=== PATIENT | female | born 1990 | race African-American/Black ===

== ENCOUNTER 2024-01-01 11:42 | Emergency (ER) | payer OTHER, SELFPAY ==
--- NOTE | 2024-01-01 | ECG_ITS ---
Test Reason : CHEST PAIN Blood Pressure : / mmHG Vent. Rate : 064 BPM Atrial Rate : 064 BPM P-R Int : 134 ms QRS Dur : 082 ms QT Int : 390 ms P-R-T Axes : 038 055 044 degrees QTc Int : 402 ms Normal sinus rhythm with sinus arrhythmia Normal ECG No previous ECGs available Referred By: Generic ED Physician Electronically Signed By:GEORGIA MONREAL MD
--- NOTE | ~2024-01-01 | XR_ITS ---
EXAMINATION: XR CHEST 2 VIEW CLINICAL INFORMATION: Cough COMPARISON: None TECHNIQUE: PA and lateral views of the chest obtained. FINDINGS: The lungs are clear. There are no pleural effusions. The cardiomediastinal silhouette is normal. XR/XR chest 2V IMPRESSION: No acute cardiopulmonary disease.
[2024-01-01 11:48] VITALS: BP 102/68; PULSE 78; RESP 18; TEMP 36.2; O2SAT 100; BMI 23.5
[2024-01-01 12:00] VITALS: RESP 18
--- NOTE | 2024-01-01 12:14 | ED_ITS ---
HPI - General Adult General Chief complaint: General Medical Stated complaint: Allergic reaction ?, congestion Time Seen by Provider: 01/01/24 12:14 Source: patient Mode of arrival: ambulatory Limitations: no limitations History of Present Illness ED Provider: brinda AVILA narrative: Patient is a 33-year-old female with history of ashtma presenting to the emergency department with complaint of nasal congestion, sinus pain, and productive cough for the past week as well as rash to hands and feet which developed 3 days ago. Denies any fevers since onset of symptoms. Does not currently have any inhalers at home. Reports chest pain only with episodes of coughing. States rash to hands and feet began 3 days ago after using a new soap, Gain with bleach alternative. Denies pain, reports mild pruritis. Has not taken any OTC medications for her symptoms. Denies any recent unprotected intercourse. MD complaint: cough, rash Onset (ago): day(s) Treatments prior to arrival: none Related Data Previous Rx's ?Medication ?Instructions ?Recorded albuterol sulfate 90 mcg/actuation 2 puff inhalation Q4-6H PRN 01/01/24 aerosol inhaler shortness of breath or wheezing #6.7 grams azithromycin 250 mg tablet See Rx Instructions PO .COMPLEX #6 01/01/24 tabs prednisone 20 mg tablet 40 mg (2 x 20 mg) PO DAILY #10 tabs 01/01/24 Allergies Allergy/AdvReac Type Severity Reaction Status Date / Time latex Allergy Hives Verified 01/01/24 11:52 Review of Systems Review of Systems: As per HPI. Yes all other systems are reviewed and are negative Constitutional: Constitutional: Reports as per HPI PMF Social History Social History Smoked in Last 30 Days: Yes Use of substances other than those prescribed or required for medical reasons: Yes Substance Use Type: Marijuana Substance Use Frequency: Daily Last Used Substance: Just Prior to Admission Any prior treatment program specific to substance use: No Advance Directives: No Advance Directives Information Provided: Yes Do you have a plan to hurt others: No Plan Physical Exam ED Vital Signs: Vital Signs - 24 hr 01/01/24 11:48 01/01/24 12:00 01/01/24 14:11 Temperature 97.1 F 97.8 F Pulse Rate 78 65 Respiratory Rate 18 18 19 Blood Pressure 102/68 103/63 Pulse Oximetry 100 100 Oxygen Delivery Method Room Air Room Air BMI result Body Mass Index 23.5 Vital signs have been reviewed and appear to be correct. Blood pressure normal. Heart rate normal. Respiratory rate normal. Temperature normal. Oxygen saturation normal. Const General: cooperative, healthy appearing and no acute distress Orientation/consciousness: oriented to person, oriented to place, oriented to time and patient oriented x3 Limitations: no limitations HENMT Head: Yes normocephalic and Yes atraumatic Ears: external ears normal General nose exam: Normal external nose present Face and sinus: Yes face symmetric Mouth: oropharynx normal and moist mucous membranes Throat: Yes uvula midline Eyes Pupils: Equal, round and reactive pupils present Neck Neck: Yes normal visual inspection and Yes supple Resp Effort & Inspection: normal respiratory effort, able to speak in complete sentences, no retractions and no use of accessory muscles Auscultation: clear to auscultation bilaterally, no rales, no rhonchi and no wheezes Cardio Rate: regular rate Rhythm: regular rhythm Heart sounds: S1 normal heart sound present and S2 normal heart sound present GI Palpation (GI): Soft to palpation and nontender Auscultation: normoactive bowel sounds General: Yes no CVA tenderness Back/Spine/Pelvis Back: no CVA tenderness Skin General skin exam: elasticity normal and turgor normal Rashes: rashes noted papules bilateral palmar size (1-2mm), color flesh-colored and distribution (bilateral palmar and plantar) Neuro General: oriented to person, oriented to place, oriented to time, patient oriented x3, moves all extremities, no focal motor deficits and CN's II-XI intact bilaterally Cranial nerves: Yes Equal, round and reactive pupils present Cognition (Neuro): normal cognition Extrem General: Yes full ROM, Yes no pedal edema and Yes no calf tenderness Psych Mental Status: mental status grossly normal Affect: normal affect Thought process: Normal thought process present Medical Decision Making Medical Decision Making MDM Narrative: Patient is a 33-year-old female with history of ashtma presenting to the emergency department with complaint of nasal congestion, sinus pain, and productive cough for the past week as well as rash to hands and feet which developed 3 days ago. On exam patient is awake, A+Ox3, VS WNL, afebrile, normal neurological exam without focal deficits, physical exam findings as above. Given reported symptoms and physical exam findings, initial differential includes viral illness, bronchitis, pneumonia, rhinosinusitis, contact dermatitis, dyshydrotic eczema, secondary syphillis. X-ray notable for no evidence of pneumonia. My interpretation is in agreement with the radiologist's interpretation. Viral serology negative. RPR positive, patient updated on results. Treated with PCN G, mandatory reporting completed. Patient declining HIV testing at this time. Discussed with patient that she needs to notify all sexual partners within the last 90 days of results and that they also require treatment. Instructed her to abstain from intercourse for at least 7 days. Will treat patient for bronchitis with azithromycin, prednisone and albuterol inhaler. Return precautions discussed. Instructed patient to follow up with PCP. Patient verbalized understanding of and agreement with plan. Differential Diagnosis Differential Diagnoses: The differential diagnosis associated with the presentation includes As per [facility] Admission/Observation Consideration of admission/observation: Escalation of care including admission/observation considered Patient would have been admitted to the hospital had their work up had any findings where hospital admission was appropriate and their clinical presentation warranted hospital admission. Lab Data [facility] Lab Attestation statement: I reviewed the patient's lab results. As per [facility] Labs: Lab Results 01/01/24 Range/Units 13:42 T.pallidum Ab (EIA) Reactive A (Nonreactive) Influenza Type A (PCR) NEGATIVE (Negative) Influenza Type B (PCR) NEGATIVE (Negative) RSV RNA Qual (PCR) NEGATIVE (Negative) SARS-CoV-2 RNA (RT-PCR) NEGATIVE (Negative) Independent Interpretation I performed an independent interpretation of an: Plain X-Ray Interpretation: No evidence of pneumonia. Radiology Impression Discussion of test interpretation with radiology: I have reviewed the [facility] ologist's reading. Radiologist Impression: XR/XR chest 2V IMPRESSION: No acute cardiopulmonary disease. External Record Review External record reviewed: Inpatient record and Office record Prescription Management I considered prescription management with: Antibiotic and Other Discharge Plan Discharge Clinical Impression: Bronchitis, Secondary syphilis Patient Disposition: Home, Self-Care Instructions: Sexually Transmitted Diseases (ED), Syphilis (ED), Acute Bronchitis (ED) Additional Instructions: You were evaluated in the emergency department today for a cough and rash. Your x-ray did not show evidence of pneumonia. You are being treated for bronchitis with an antibiotic, a short course of steroids, and inhaler. Please take these medications as prescribed. You also tested positive for syphilis today and were treated with an antibiotic injection in the emergency department. It is important that you do not have sexual intercourse for at least 7 days following this treatment. It is also important that you notify any sexual partners that you have had within the last 90 days because they also need treatment. In the future you should use barrier protection (condom) during intercourse. You should follow up with your primary care provider. Return to the emergency department with any new or worsening symptoms. Prescriptions: New azithromycin 250 mg tablet See Rx Instructions .ROUTE .COMPLEX Qty: 6 0RF Rx Instructions: For 250 mg dose pack: take 500 mg today (day 1), then 250 mg for 4 days (days 2-5) prednisone 20 mg tablet 40 mg PO DAILY Qty: 10 0RF albuterol sulfate 90 mcg/actuation HFA aerosol inhaler 2 puff inhalation Q4-6H PRN (Reason: shortness of breath or wheezing) Qty: 6.7 0RF Print Language: Nepali
[2024-01-01 14:11] VITALS: BP 103/63; PULSE 65; RESP 19; TEMP 36.6; O2SAT 100
[2024-01-01 14:28] LABS: Influenza A PCR NEGATIVE (Negative); Influenza B PCR NEGATIVE (Negative); Resp Syncy Virus RNA Qual PCR NEGATIVE (Negative); SARS COV2 PCR INHOUSE NEGATIVE (Negative)
[2024-01-01 14:37] LABS: Syphilis Screen Reactive (Nonreactive)
[2024-01-01 15:50] VITALS: BP 99/55; PULSE 64; RESP 18; TEMP 36.8; O2SAT 99
[2024-01-01] MEDS: Penicillin G Benzathine 2,400,000 UNIT/4 ML SYRINGE 2400000 UNIT IM (16:47)
[2024-01-01 16:48] VITALS: BP 120/80; PULSE 80; RESP 18; TEMP 36.8; O2SAT 98
[2024-01-06 15:18] LABS: RPR Quantitative Non-Reactive (Nonreactive); T.Pallidum Particle Agg Test Reactive (Nonreactive)
== END 2024-01-01 16:49 | disposition home or self-care (01) ==
PROVIDERS: Registered Nurse Emergency; Emergency Provider Emergency Medicine
DX: J40 Bronchitis, not specified as acute or chronic (principal); A51.49 Other secondary syphilitic conditions; R07.89 Other chest pain; I49.8 Other specified cardiac arrhythmias; Z03.818 Encounter for observation for suspected exposure to other biological agents ruled out; Z79.899 Other long term (current) drug therapy
CPT/HCPCS: 0241U; 36415; 71046; 86592; 86780; 93005; 99283; 99284; J0561

== ENCOUNTER → 2024-01-01 11:56 | Outpatient (BNV) | payer OTHER, SELFPAY | PROVIDERS: Emergency Provider Emergency Medicine; Visit Provider Internal Medicine Cardiovascular Disease | DX: R07.9 Chest pain, unspecified (principal) | CPT/HCPCS: 93010 ==

== ENCOUNTER 2024-01-12 07:42 | Emergency (ER) | payer OTHER, SELFPAY ==
[2024-01-12 07:53] VITALS: BP 127/71; PULSE 83; RESP 16; TEMP 37; O2SAT 100; BMI 24.0
[2024-01-12 10:13] VITALS: BP 110/68; PULSE 62; RESP 16; O2SAT 100
--- NOTE | 2024-01-12 10:30 | ED.EXTPRO ---
HPI - Extremity Problem General Chief complaint: Extremity Problem Stated complaint: swollen hands Time Seen by Provider: 01/12/24 10:20 Source: patient Mode of arrival: ambulatory Limitations: no limitations History of Present Illness ED Provider: Dr. Madrigal HPI Narrative: Patient with pustulse to hands for the past 10 days. Very itchy at night. She was on prednisone and abx with no improvement. patient with diffuse pustules Onset (ago): week(s) Pain Consistency: constant Related Data Previous Rx's ?Medication ?Instructions ?Recorded albuterol sulfate 90 mcg/actuation 2 puff inhalation Q4-6H PRN 01/01/24 aerosol inhaler shortness of breath or wheezing #6.7 grams azithromycin 250 mg tablet See Rx Instructions PO .COMPLEX #6 01/01/24 tabs prednisone 20 mg tablet 40 mg (2 x 20 mg) PO DAILY #10 tabs 01/01/24 permethrin 5 % topical cream 1 appl topical Q14D 2 doses #60 01/12/24 (Elimite) grams Allergies Allergy/AdvReac Type Severity Reaction Status Date / Time latex Allergy Hives Verified 01/12/24 07:53 Review of Systems Review of Systems: Yes all other systems are reviewed and are negative Neurologic: Denies Sensory deficit (Neuro) [facility] Social History Social History Substance Use Type: Marijuana Advance Directives: No Advance Directives Information Provided: No Physical Exam Vital Signs: Vital Signs: Last Vital Signs Temp 98.6 F 01/12/24 07:53 Pulse 62 01/12/24 10:13 Resp 16 01/12/24 10:13 BP 110/68 01/12/24 10:13 Pulse Ox 100 01/12/24 10:13 O2 Del Method Room Air 01/12/24 10:13 BMI result Body Mass Index 24.0 Const: General: healthy appearing Nutritional Appearance: average body habitus Orientation/consciousness: oriented to person and patient oriented x3 Limitations: no limitations HEENT: Head: Yes normal to inspection Ears: external ears normal General nose exam: Normal external nose present Mouth: Normal oral and palatal mucosa present and oropharynx normal Throat: Yes posterior oropharynx normal Eyes: General: appearance normal, both eyes and all related structures Neck: Other: supple Neck: Yes normal visual inspection Chest: Chest palpation & inspection: normal inspection of the chest Resp: Auscultation: clear to auscultation bilaterally Cardio: Jugular venous distension: no JVD Rate: regular rate Rhythm: regular rhythm Heart sounds: S1 normal heart sound present and S2 normal heart sound present GI: Inspection: Yes normal to inspection Palpation (GI): Soft to palpation, nontender and No hepatosplenomegaly present Auscultation: normal bowel sounds : General: Yes no CVA tenderness Back/Spine/Pelvis: Back: no CVA tenderness Skin: General skin exam: no rashes or lesions noted Neuro: General: oriented to person and patient oriented x3 Cranial nerves: Yes CN's II-XII intact bilaterally Motor exam (neuro): 5/5 motor strength present throughout Sensory Exam: No Sensory deficit (Neuro) Extrem: Other: both hands with pustules between the fingers Psych: Appearance: grossly normal Course Reevaluation(s) Reevaluation #1: will treat patient for scabies Time: 10:37 Medical Decision Making Differential Diagnosis Differential Diagnoses: The differential diagnosis associated with the presentation includes (scabies, warts, cellulitis) External Record Review External record reviewed: Outpatient record Prescription Management I considered prescription management with: Antibiotic (hands do not appear infected with cellulitis) Social Determinants Patient?s care significantly limited by Social Determinants of Health including: Low income Discharge Plan Discharge Clinical Impression: Scabies Patient Disposition: Home, Self-Care Instructions: Scabies (ED) Prescriptions: New permethrin [Elimite] 5 % cream 1 appl topical Q14D Qty: 60 0RF Rx Instructions: apply second treatment 14 days after first treatment if live lice remain No Action azithromycin 250 mg tablet See Rx Instructions .ROUTE .COMPLEX Qty: 6 0RF Rx Instructions: For 250 mg dose pack: take 500 mg today (day 1), then 250 mg for 4 days (days 2-5) prednisone 20 mg tablet 40 mg PO DAILY Qty: 10 0RF albuterol sulfate 90 mcg/actuation HFA aerosol inhaler 2 puff inhalation Q4-6H PRN (Reason: shortness of breath or wheezing) Qty: 6.7 0RF Referrals: Physician,None [Primary Care Provider] - 1 week Print Language: [place]
[2024-01-12 10:46] VITALS: BP 110/68; PULSE 62; RESP 16; TEMP 37; O2SAT 100
== END 2024-01-12 10:46 | disposition home or self-care (01) ==
PROVIDERS: Emergency Provider Emergency Medicine
DX: B86 Scabies (principal); L08.9 Local infection of the skin and subcutaneous tissue, unspecified
CPT/HCPCS: 99283